=== PATIENT | male | born 1965 | race Caucasian/White ===

== ENCOUNTER 2024-11-15 19:18 | Emergency (ER) | payer BC ==
[~2024-11-15] VITALS: Ht 165.1 cm; Wt 72.6 kg
[2024-11-15] MEDS ORDERED: KETOROLAC TROME10 MG PO (20:56)
[2024-11-15 21:01] VITALS: PULSE 61; RESP 16; TEMP 97.9
[2024-11-15 21:02] VITALS: BP 140/85; PULSE 61; RESP 16; TEMP 97.9; O2SAT 96
== END 2024-11-15 21:05 | disposition home or self-care (01) ==
LOC: FSED 19:44
DX: S16.1XXA Strain of muscle, fascia and tendon at neck level, initial encounter (principal); V43.52XA Car driver injured in collision with other type car in traffic accident, initial encounter; Y92.488 Other paved roadways as the place of occurrence of the external cause
CPT/HCPCS: 70450; 72125; 99283